=== PATIENT | female | born 1985 | race Hispanic/Latino ===

== ENCOUNTER 2018-07-25 08:32 | Day surgery (SDC) | payer OTHER ==
--- OUTSIDE RECORDS SUMMARY | 2018-07-25 08:34 | XMS REPORT ---
:1985 Author Organization e[employer]Works Care Team Providers Name Role Phone Zac Santacruz Provider Role Unavailable Allergies No Known Allergies Problems Problem Type Condition Code Onset Dates Condition Status Problem Fatigue R53.83 Active Problem Chronic sinusitis J32.9 Active Problem Nonscarring hair loss, unspecified L65.9 Active Problem Paronychia of finger of left hand L03.012 Active Problem Encounter for gynecological Z01.419 Active examination without abnormal finding Problem GERD without esophagitis K21.9 Active Problem Hypothyroidism E03.9 Active Problem Tobacco use disorder F17.200 Active Problem Screening examination for sexually Z11.3 Active transmitted disease Problem Allergic rhinitis, unspecified J30.9 Active seasonality, unspecified trigger Assessment Paronychia of finger of left hand L03.012 Active Problem Vitamin B12 deficiency E53.8 Active Problem Depression with anxiety F41.8 Active Problem Constipation K59.00 Active Problem Vitamin D deficiency E55.9 Active Problem Prediabetes R73.09 Active Medications Medication Code System Code Instructions Start End Date Status Dosage Date Valentino [facility] 58468564171 500 MG Orally QID April 19, Active 1 capsule 2017 Results No Known Results Summary Purpose eClinicalWorks Submission
--- OUTSIDE RECORDS SUMMARY | 2018-07-25 08:35 | XMS REPORT ---
:1985 Author Organization [employer] Care Team Providers Name Role Phone Noam Zac Provider Role Unavailable Allergies No Known Allergies [...] unspecified J30.9 Active seasonality, unspecified trigger Assessment Fatigue R53.83 Active Assessment Hypothyroidism E03.9 Active Assessment Depression with anxiety F41.8 Active Problem Vitamin B12 deficiency E53.8 Active Problem Depression with anxiety F41.8 Active Problem Constipation K59.00 Active Problem Vitamin D deficiency E55.9 Active Problem Prediabetes R73.09 Active Medications No Known Medications Results No Known Results Summary Purpose eClinicalWorks Submission
--- OUTSIDE RECORDS SUMMARY | 2018-07-25 08:35 | XMS REPORT ---
:1985 Author Organization e[employer]Works Care Team Providers Name Role Phone Noam Zac Provider Role Unavailable Allergies, Adverse Reactions, Alerts Substance Reaction Event Type N.K.D.A. Info Not Available Non Drug Allergy Problems Problem Type Condition Code Onset Dates Condition Status Assessment Vitamin B12 deficiency E53.8 Active Assessment Allergic rhinitis, unspecified J30.9 Active seasonality, unspecified trigger Problem Constipation K59.00 Active Assessment Vitamin D deficiency E55.9 Active Problem Prediabetes R73.09 Active Assessment Prediabetes R73.09 Active Problem Fatigue R53.83 Active Problem Chronic sinusitis J32.9 Active Problem Nonscarring hair loss, unspecified L65.9 Active Problem Paronychia of finger of left hand L03.012 Active Problem Encounter for gynecological Z01.419 Active examination without abnormal finding Assessment Tobacco use disorder F17.200 Active Assessment Constipation K59.00 Active Problem GERD without esophagitis K21.9 Active Assessment Fatigue R53.83 Active Problem Hypothyroidism E03.9 Active Problem Tobacco use disorder F17.200 Active Problem Screening examination for sexually Z11.3 Active transmitted disease Problem Allergic rhinitis, unspecified J30.9 Active seasonality, unspecified trigger Assessment Depression with anxiety F41.8 Active Assessment Hypothyroidism E03.9 Active Assessment GERD without esophagitis K21.9 Active Assessment Abdominal bloating R14.0 Active Problem Vitamin B12 deficiency E53.8 Active Problem Depression with anxiety F41.8 Active Problem Vitamin D deficiency E55.9 Active Medications Medication Code Code Instructions Start End Status Dosage System Date Date Iron [facility] [address]-63 Active not defined Zinc [facility] 90763-22637 Active not defined Vitamin D3 [facility] 86471345628 2000 UNIT Active 1 capsule Orally Once a day Omeprazole ND 04582394052 40 MG Orally Jul 11, Active 1 capsule Once a day 2017 Women[facility] NDC 0 Active not Essentials 1 a defined day Multivitamins Hair Skin Nails [facility] 57487-10041 Active not defined Diflucan [facility] 86654784685 150 MG Orally Active 1 tablet Once a day (as needed for yeast infection ) Biotin [facility] 17454990255 1 MG Orally Active not defined Synthroid [facility] 27607248509 50 MCG Orally Active 1 tablet Once a day on an empty stomach in the morning Nicotine Step 1 [facility] 14323345611 21 MG/24HR Active 1 patch Transdermal to skin Once a day Brain [facility] [address]-43 Active not defined Results No Known Results Summary Purpose eClinicalWorks Submission
[2018-07-25 08:56] LABS: Specific Gravity 1.025 (1.005-1.030)
[2018-07-25] MEDS ORDERED: Ringers Lactate 1,000 ML IV ONE (09:05)
[2018-07-25] MEDS ORDERED: LIDOCAINE 1% MPF 5 ML VIAL ONE (09:57)
[2018-07-25] MEDS ORDERED: PROPOFOL 200 MG/20 ML VIAL IV ONE (10:04)
[2018-07-25] MEDS ORDERED: MIDAZOLAM HCL 2 MG/2 ML INJ ONE (10:11)
--- NOTE | 2018-07-25 10:23 | ENDO RPT ---
[address], [address] EGD PROCEDURE REPORT EXAM DATE: 07/25/2018 PATIENT NAME: Sandi Hobson MR#: [id number] BIRTHDATE: 1985 ATTENDING: Ignacio Patel DR STATUS: outpatient [employer] SUPERVISOR: Freda Chance RN, Dex Ortega [facility], and Gavi Boucher RN INDICATIONS: The patient is a 32 yr old Female here for an EGD due to abdominal pain, mid epigastric abdominal pain, belching, dysphagia, dyspepsia, and GERD PROCEDURE PERFORMED: EGD with biopsy for H. pylori MEDICATIONS: Per Anesthesia. TOPICAL ANESTHETIC: none CONSENT: The patient understands the risks and benefits of the procedure and understands that these risks include, but are not limited to: sedation, allergic reaction, infection, perforation and/or bleeding. Alternative means of evaluation and treatment include, among others: physical exam, x-rays, and/or surgical intervention. The patient elects to proceed with this endoscopic procedure. DESCRIPTION OF PROCEDURE: During intra-op preparation period all mechanical medical equipment was checked for proper function. Hand hygiene and appropriate measures for infection prevention was taken. Procedure, possible complications, and alternatives including but not limited to the possibility of bleeding, perforation, tear, infection, sepsis, need for surgery, need for blood transfusion, and anesthesia related complications were explained to the patient. After the risks, benefits and alternatives of the procedure were thoroughly explained, Informed consent was verified, confirmed and timeout was successfully executed by the treatment team. The patient was placed in the left lateral position. The patient was anesthetized with topical anesthesia. Through the anesthetized oropharyngeal area, the scope was passed without any difficulty. The [id number] ([id number]) endoscope was introduced through the mouth and advanced to the second portion of the duodenum. Retroflexed views revealed no abnormalities. The gastroscope was then slowly withdrawn and removed. Multiple erosions were found in the body and the antrum of the stomach. A biopsy for H. pylori was taken. Duodenitis was found in the bulb and descending duodenum. A biopsy for H. pylori was taken. With standard forceps, a biopsy was obtained and sent to pathology. ADVERSE EVENTS: There were no complications. IMPRESSIONS: 1. Multiple erosions were found in the body and the antrum of the stomach 2. Duodenitis was found in the bulb and descending duodenum RECOMMENDATIONS: 1. acid suppression therapy 2. anti-reflux regimen 3. await biopsy results 4. follow-up: office 2 week(s) 5. avoid NSAIDS 6. follow-up of helicobacter pylori status, treat if indicated REPEAT EXAM: Ignacio Patel DR eSigned: Ignacio Patel DR 07/25/2018 10:23 AM cc: CPT CODES: ICD9 CODES: PATIENT NAME: Sandi Hobson MR#: [id number]
== END 2018-07-25 10:56 | disposition home health service (06) ==
LOC: OR 08:32
PROVIDERS: ATTEND Surgery
PROC: 0DB78ZX Excision of Stomach, Pylorus, Via Natural or Artificial Opening Endoscopic, Diagnostic (ICD-10-PCS; 2018-07-25)
PROC: 0DB98ZX Excision of Duodenum, Via Natural or Artificial Opening Endoscopic, Diagnostic (ICD-10-PCS; principal; 2018-07-25 10:11)
DX: K29.50 Unspecified chronic gastritis without bleeding (principal); K25.9 Gastric ulcer, unspecified as acute or chronic, without hemorrhage or perforation; K29.80 Duodenitis without bleeding; K21.9 Gastro-esophageal reflux disease without esophagitis; E03.9 Hypothyroidism, unspecified; F41.8 Other specified anxiety disorders; E53.8 Deficiency of other specified B group vitamins; E55.9 Vitamin D deficiency, unspecified; Z90.49 Acquired absence of other specified parts of digestive tract; Z82.49 Family history of ischemic heart disease and other diseases of the circulatory system; Z82.3 Family history of stroke; Z83.3 Family history of diabetes mellitus
CPT/HCPCS: 81025; 88305; 88312; J2250

== ENCOUNTER 2022-08-18 00:56 | Emergency (ER) | payer OTHER ==
--- OUTSIDE RECORDS SUMMARY | 2022-08-18 01:00 | XMS REPORT | Continuity of Care Document ---
:1985 Author Organization [facility] t Address [facility]3 Aime Carrillo [address] [place] [address] Care Team Providers Name Role Phone PCP, PATIENT DOES NOT HAVE A Primary Care Physician Unavaila CHARO Carroll Attending Clinician Unavailable Charo Jerez MD Attending Clinician Doctor Unassigned, Impact Attending Clinician Unavailable Pob, Adc Lab Main Attending Clinician Unavailable Payers Payer Name Policy Type Policy Number Effective Date Expiration Date Merle CHISHOLM [id number] 2021 00:00:00 Problems Condition Condition Condition Status Onset Resolution Last Treating Co mments Source Name Details Category Date Date Treatment Clinician Date Obesity Obesity Disease Active Univers (BMI (BMI 6-29 ity of 30-39.9) 30-39.9) 00:00: [place] [address] Medical Branch No known No known Disease Unive rs active active ity of problems problems [facility] Thyroid Thyroid Disease Active Univers disease disease ity of [facility] Fatigue Fatigue Problem Active [facility] - [facility] Chronic Chronic Problem Active Common sinusitis sinusitis Spir it - [facility] Nonscarrin Nonscarrin Problem Active C ommon g hair g hair Spirit loss, loss, - CHI unspecifie unspecifie d [facility] Paronychia Paronychia Problem Active C ommon of finger of finger Spir it of left of left - CHI hand hand [facility] Encounter Encounter Problem Active Com mon for for Spirit gynecologi gynecologi - CHI denise denise St examinatio examinatio Nimisha kes n without n without Medi denise abnormal abnormal Center finding finding GERD GERD Problem Active Common without without Spirit esophagiti esophagiti - CHI s s [facility] Hypothyroi Hypothyroi Problem Active C ommon dism dism [facility] 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 [facility] Screening Screening Problem Active Com mon examinatio examinatio Sp bernie n for n for - CHI sexually sexually St transmitte transmitte Nimisha kes d disease d disease [facility] Allergic Allergic Problem Active Commo n rhinitis, rhinitis, Spir it unspecifie unspecifie - CHI d d St seasonalit seasonalit Nimisha kes y, y, Medical unspecifie unspecifie Ce nter d trigger d trigger Vitamin Vitamin Problem Active Common B12 B12 Spirit deficiency deficiency [facility] Depression Depression Problem Active Og guadalupe with with Spirit anxiety anxiety [facility] Constipati Constipati Problem Active Og guadalupe on on [facility] Vitamin D Vitamin D Problem Active Com mon deficiency deficiency Sp bernie - [facility] Prediabete Prediabete Problem Active Og guadalupe s s [facility] Gastritis Gastritis Problem Active Com mon and and Spirit duodenitis duodenitis [facility] Adult BMI Adult BMI Problem Active Com mon 30.0-30.9 30.0-30.9 Spir it kg/sq m kg/sq m [facility] Panic Panic Problem Active Common attacks attacks [facility] Upper Upper Diagnosis Active Common respirator respirator Sp bernie y tract y tract - CHI infection, infection, St unspecifie unspecifie Nimisha kes d type d type [facility] Center Non-season Non-season Diagnosis Active Common al al Spirit allergic allergic - CHI rhinitis, rhinitis, St unspecifie unspecifie Nimisha kes d trigger d trigger [facility] Acute Acute Diagnosis Active Common non-recurr non-recurr Sp bernie ent ent - CH[facility] maxillary maxillary St sinusitis sinusitis [facility] Allergies, Adverse Reactions, Alerts Allergy Allergy Status Severity Reaction(s) Onset Inactive Treating Comm ents Source Name Type Date Date Clinician NUTRITIO DRUG Active Unknown-Cmnt 2018-11 Un beck NAL 12-25 ity of SUPPLEME 00:00: [place] NT-FIBER [address] [place] [address] FISH DRUG Active Unknown-nt 2018-11 Univ ers DERIVED INGREDI 12-25 ity of 00:00: [address] NO KNOWN Drug Active Univers ALLERGIE Class ity of S [facility] Eggs/Paul Adverse Active Info Not Commo n les/Oats Reaction Available Spi rit - [facility] Fish Adverse Active Info Not Common Flavor Reaction Available Spiri t - [facility] Social History Social Habit Start Date Stop Date Quantity Comments Source Exposure to Not sure [facility] SARS-CoV-2 [facility] (event) [place] Tobacco use and 2021-05-27 2021-05-27 Never used Universit y of exposure 00:00:00 00:00:00 [facility] Alcohol intake 2021-05-27 2021-05-27 [facility] 00:[facility]:00 00:00:00 (finding) [facility] Sex [birth year] Universit y of 00:00:00 00:00:00 [facility] Smoking Status Start Date Stop Date Source Former smoker 2021-05-27 00:00:00 2021-05-27 00:00:00 Universi ty [facility] Medications Ordered Filled Start Stop Current Ordering Indication Dosage Frequency Signature Comments Components Source Medication Medication Date Date Medication? Clinician (SIG) Name Name metroNIDAZO 2020- No [id number] 1{appli Insert 1 Univers LE 0.75 % 7-15 06-18 cator} Applicator i ty of vaginal gel 00:00: 04:59 into [place] 00 :00 vagina at [facility] bedtime [place] for 5 days. Insert for 5 days every month for 6 months Lactobacill Yes Take by Uni vers us 6-29 mouth. ity of acidophilus 16:38: [place] (PROBIOTIC) [address] cell capsule multivitami Yes Take by Uni vers n with 6-29 mouth. ity of minerals 16:38: [place] (HAIR,SKIN 05 Medical AND NAILS Branch ORAL) Lactobacill Yes Take by Uni vers us 6-29 mouth. ity of acidophilus 16:38: [place] (PROBIOTIC) 05 [place] [address] billion [place] cell capsule multivitami Yes Take by Uni vers n with 6-29 mouth. ity of minerals 16:38: [place] (HAIR,SKIN 05 Medical AND NAILS Branch ORAL) Lactobacill Yes Take by Uni vers us 6-29 mouth. ity of acidophilus 16:38: [place] (PROBIOTIC) [address] cell capsule multivitami Yes Take by Uni vers n with 6-29 mouth. ity of minerals 16:38: [place] (HAIR,SKIN 05 Medical AND NAILS Branch ORAL) Lactobacill Yes Take by Uni vers us 6-29 mouth. ity of acidophilus 16:38: [place] (PROBIOTIC) 05 Medical 10 billion Branch cell capsule multivitami Yes Take by Uni vers n with 6-29 mouth. ity of minerals 16:38: [place] (HAIR,SKIN 05 Medical AND NAILS Branch ORAL) Lactobacill 0 Yes Take by Uni vers us 6-29 mouth. ity of acidophilus 16:38: [place] (PROBIOTIC) 05 Medical 10 billion Branch cell capsule multivitami Yes Take by Uni vers n with 6-29 mouth. ity of minerals 16:38: [place] (HAIR,SKIN 05 Medical AND NAILS Branch ORAL) Lactobacill Yes Take by Uni vers us 6-29 mouth. ity of acidophilus 16:38: [place] (PROBIOTIC) 05 Medical 10 billion Branch cell capsule multivitami Yes Take by Uni vers n with 6-29 mouth. ity of minerals 16:38: [place] (HAIR,SKIN 05 Medical AND NAILS Branch ORAL) Lactobacill 0 Yes Take by Uni vers us 6-29 mouth. ity of acidophilus 16:38: [place] (PROBIOTIC) 05 Medical 10 billion Branch cell capsule multivitami Yes Take by Uni vers n with 6-29 mouth. ity of minerals 16:38: [place] (HAIR,SKIN 05 Medical AND NAILS Branch ORAL) metroNIDAZO 0 Yes [id number] 500mg Take 1 Univers LE 500 mg 5-16 tablet by ity o f tablet 00:00: mouth [place] 00 every 12 Medical (twelve) Branch hours. metroNIDAZO 2020-2020- No [id number] 500mg Take 1 Univers LE 500 mg 5-16 -29 tablet by ity of tablet 00:00: 00:00 mouth [place] 00 :00 every 12 Medical (twelve) Branch hours. metroNIDAZO 2020- 202- No [id number] 500mg Take 1 Univers LE 500 mg 5-16 -29 tablet by ity of tablet 00:00: 00:00 mouth [place] 00 :00 every 12 Medical (twelve) Branch hours. fluconazole 2020-2020- No [id number] 150mg Take 1 Univers 150 mg 5-16 05-17 tablet by ity of tablet 00:00: 04:59 [place] 00 :[place] now for 1 Medical dose. Branch metroNIDAZO 0 Yes [id number] 500mg Take 1 Univers LE 500 mg 4-16 tablet by ity o f tablet 00:00: mouth [place] 00 every 12 Medical (twelve) Branch hours. Nitrofurant Yes [id number] 100mg Take 1 Univers oin&Nit. 4-16 capsule by ity o f Mac[place] 00:00: [place] 2 [place] (MACROBID) 00 (two) Medical 100 mg times Branch capsule daily. metroNIDAZO Yes [id number] 500mg Take 1 Univers LE 500 mg 4-16 tablet by ity o f tablet 00:00: mouth [place] 00 every 12 Medical (twelve) Branch hours. Nitrofurant Yes [id number] 100mg Take 1 Univers oin&Nit. 4-16 capsule by ity o f Mac[place] 00:00: mouth 2 [place] (MACROBID[place] 00 (two) Medical 100 mg times Branch capsule daily. metroNIDAZO Yes [id number] 500mg Take 1 Univers LE 500 mg 4-16 tablet by ity o f tablet 00:00: mouth [place] 00 every 12 Medical (twelve) Branch hours. Nitrofurant 2020- Yes [id number] 100mg Take 1 Univers oin&Nit. 4-16 capsule by ity o f [place] 00:00: mouth 2 [place] (MACROBID) 00 (two) Medical 100 mg times Branch capsule daily. metroNIDAZO 2020- Yes [id number] 500mg Take 1 Univers LE 500 mg 4-16 tablet by ity o f tablet 00:00: mouth [place] 00 every 12 Medical (twelve) Branch hours. Nitrofurant 2020-0 Yes [id number] 100mg Take 1 Univers oin&Nit. 4-16 capsule by ity o f Mac[place] 00:00: mouth 2 [place] (MACROBID[place] 00 (two) Medical 100 mg times Branch capsule daily. metroNIDAZO 2020-0 Yes [id number] 500mg Take 1 Univers LE 500 mg 4-16 tablet by ity o f tablet 00:00: mouth [place] 00 every 12 Medical (twelve) Branch hours. Nitrofurant 2020-0 Yes [id number] 100mg Take 1 Univers oin&Nit. 4-16 capsule by ity o f Mac[place]ryst 00:00: mouth 2 [place] (MACROBID) 00 (two) Medical 100 mg times Branch capsule daily. metroNIDAZO 2020-0 Yes [id number] 500mg Take 1 Univers LE 500 mg 4-16 tablet by ity o f tablet 00:00: mouth [place] 00 every 12 Medical (twelve) Branch hours. Nitrofurant 2020-0 Yes [id number] 100mg Take 1 Univers oin&Nit. 4-16 capsule by ity o f Mac[place]ryst 00:00: mouth 2 [place] (MACROBID) 00 (two) Medical 100 mg times Branch capsule daily. metroNIDAZO 2020-0 2020- No [id number] 500mg Take 1 Univers LE 500 mg 4-16 05-13 tablet by ity of tablet 00:00: 00:00 mouth [place] 00 :00 every 12 Medical (twelve) Branch hours. Nitrofurant 2020-0 2020- No [id number] 100mg Take 1 Univers oin&Nit. 4-16 05-13 capsule by ity of Macrocryst 00:00: 00:00 mouth 2 [place] (MACROBID) 00 :00 (two) Medical 100 mg times Branch capsule daily. metroNIDAZO 2020-0 1- No [id number] 500mg Take 1 Univers LE 500 mg 4-16 05-13 tablet by ity of tablet 00:00: 00:00 mouth [place] 00 :00 every 12 Medical (twelve) Branch hours. Nitrofurant 2020-0 2020- No [id number] 100mg Take 1 Univers oin&Nit. 4-16 05-13 capsule by ity of Macrocryst 00:00: 00:00 mouth 2 [place] (MACROBID) 00 :00 (two) Medical 100 mg times Branch capsule daily. spironolact 2020-0 Yes Univer s one 100 mg 1-15 ity of tablet 00:00: [place] 00 Medical Branch spironolact 2020-0 Yes Univer s one 100 mg 1-15 ity of tablet 00:00: [place] 00 Medical Branch spironolact 2020-0 Yes Univer s one 100 mg 1-15 ity of tablet 00:00: [place] [facility] spironolact 2020-0 Yes Univer s one 100 mg 1-15 ity of tablet 00:00: [place] [facility] spironolact 2020-0 Yes Univer s one 100 mg 1-15 ity of tablet 00:00: [place] [facility] spironolact 2020-0 Yes Univer s one 100 mg 1-15 ity of tablet 00:00: [place] [facility] spironolact 2020-0 Yes Univer s one 100 mg 1-15 ity of tablet 00:00: [place] [facility] spironolact 2020-0 Yes Univer s one 100 mg 1-15 ity of tablet 00:00: [place] [facility] spironolact 2020-0 Yes Univer s one 100 mg 1-15 ity of tablet 00:00: [place] [facility] spironolact 2020-0 Yes Univer s one 100 mg 1-15 ity of tablet 00:00: [place] [facility] spironolact 2020-0 Yes Univer s one 100 mg 1-15 ity of tablet 00:00: [place] [facility] spironolact 2020-0 Yes Univer s one 100 mg 1-15 ity of tablet 00:00: [place] [facility] spironolact 2020-0 Yes Univer s one 100 mg 1-15 ity of tablet 00:00: [place] [facility] spironolact 2020-0 Yes Univer s one 100 mg 1-15 ity of tablet 00:00: [place] [facility] spironolact 2020-0 Yes Univer s one 100 mg 1-15 ity of tablet 00:00: [place] [facility] liothyronin 2019- Yes Univer s e 5 mcg 1-24 ity of tablet 00:00: [place] [facility] Thyroid, 2019- Yes Univers [place], (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) 90 00:00: [place] mg tablet 00 Medical Branch liothyronin 2019- Yes Univer s e 5 mcg 1-24 ity of tablet 00:00: [place] [facility] Thyroid, 2019- Yes Univers [place], (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) 90 00:00: [place] mg tablet Medical Branch liothyronin 2019-11 Yes Univer s e 5 mcg 1-24 ity of tablet 00:00: [place] [facility] Thyroid, 2019-11 Yes Univers [place], (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) 90 00:00: [place] mg tablet Medical Branch liothyronin 2019-11 Yes Univer s e 5 mcg 1-24 ity of tablet 00:00: Medical Branch Thyroid, 2019-11 Yes Univers [place], (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) 90 00:00: [place] mg tablet Medical Branch liothyronin 2019-11 Yes Univer s e 5 mcg 1-24 ity of tablet 00:00: Medical Branch Thyroid, 2019-11 Yes Univers [place], (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) 90 00:00: [place] mg tablet Medical Branch liothyronin 2019-11 Yes Univer s e 5 mcg 1-24 ity of tablet 00:00: Medical Branch Thyroid, 2019-11 Yes Univers [place], (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) 90 00:00: [place] mg tablet Medical Branch liothyronin 2019-11 Yes Univer s e 5 mcg 1-24 ity of tablet 00:00: Medical Branch Thyroid, 2019-11 Yes Univers [place], (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) 90 00:00: [place] mg tablet Medical Branch liothyronin 2019-11 Yes Univer s e 5 mcg 1-24 ity of tablet 00:00: Medical Branch Thyroid, 2019-11 Yes Univers [place], (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) 90 00:00: [place] mg tablet Medical Branch liothyronin 2019-11 Yes Univer s e 5 mcg 1-24 ity of tablet 00:00: [place] [facility] Thyroid, 2019-11 Yes Univers [place], (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) 90 00:00: [place] mg tablet Medical Branch liothyronin 2019-11 Yes Univer s e 5 mcg 1-24 ity of tablet 00:00: Medical Branch Thyroid, 2019-11 Yes Univers [place], (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) 90 00:00: [place] mg tablet Medical Branch liothyronin 2019-11 Yes Univer s e 5 mcg 1-24 ity of tablet 00:00: [place] [facility] Thyroid, 2019-11 Yes Univers [place], (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) 90 00:00: [place] mg tablet [facility] liothyronin 2019-11 Yes Univer s e 5 mcg 1-24 ity of tablet 00:00: [place] [facility] Thyroid, 2019-11 Yes Univers [place], (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) 90 00:00: [place] mg tablet [facility] liothyronin 2019-11 Yes Univer s e 5 mcg 1-24 ity of tablet 00:00: [place] [facility] Thyroid, 2019-11 Yes Univers [place], (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) 90 00:00: [place] mg tablet [facility] liothyronin 2019-11 Yes Univer s e 5 mcg 1-24 ity of tablet 00:00: [place] [facility] Thyroid, 2019-11 Yes Univers [place], (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) 90 00:00: [place] mg tablet [facility] liothyronin 2019-11 Yes Univer s e 5 mcg 1-24 ity of tablet 00:00: [place] [facility] Thyroid, 2019-11 Yes Univers [place], (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) 90 00:00: [place] mg tablet [facility] Amoxicillin Amoxicillin 2018-11 2019- No Azc 1 tablet Common -Pot -Pot 1-27 12-07 [facility] Clavulanate Clavulanate 00:00: 00:00 - CHI 00 :00 [facility] Montelukast Montelukast 2019-0 Yes Zac 1 tablet Common Sodium Sodium 8-22 [facility] 00:00: - CHI 00 [facility] Omeprazole Omeprazole 2017-0 Yes Zac 1 capsule Common 8-13 [facility] 00:00: - CHI 00 [facility] No known No Univers medications ity of [facility] Biotin Biotin Yes Zac not Common Sant[facility] defined Spirit [facility] Iron Iron Yes Zac not Common [facility] defined [facility] Hair Skin Hair Skin Yes Zac not Com mon Nails Nails [facility] defined [facility] Synthroid Synthroid Yes Zac 1 tablet Common [facility] on an Spirit empty - CHI stomach in [facility] Vitamin D3 Vitamin D3 Yes Zac 1 capsule Common [facility] - [facility] Brain Brain Yes Zac not Common [facility] defined Spirit - [facility] Women's Women's Yes Zac not Common Essentials Essentials [facility] defined Spirit 1 a day 1 a day - CHI Multivitami Multivitami S t ns [facility] Nicotine Nicotine Yes Zac 1 patch to Common Step 1 Step 1 [facility] skin Spirit - [facility] Zinc Zinc Yes Zac not Common [facility] defined [facility] Immunizations Ordered Filled Immunization Date Status Comments Sour e Immunization Name Name SARS-COV-2 COVID-19 2021-02-15 Completed Unive rsity of PFIZER VACCINE 00:00:00 [facility] SARS-COV-2 COVID-19 2021-02-15 Completed Unive rsity of PFIZER VACCINE 00:00:00 [facility] SARS-COV-2 COVID-19 2021-02-15 Completed Unive rsity of PFIZER VACCINE 00:00:00 [facility] SARS-COV-2 COVID-19 2021-02-15 Completed Unive rsity of PFIZER VACCINE 00:00:00 [facility] SARS-COV-2 COVID-19 2021-02-15 Completed Unive rsity of PFIZER VACCINE 00:00:00 [facility] SARS-COV-2 COVID-19 2021-02-15 Completed Unive rsity of PFIZER VACCINE 00:00:00 [facility] SARS-COV-2 COVID-19 2021-02-15 Completed Unive rsity of PFIZER VACCINE 00:00:00 [facility] SARS-COV-2 COVID-19 2021-02-15 Completed Unive rsity of PFIZER VACCINE 00:00:00 [facility] SARS-COV-2 COVID-19 2021-02-15 Completed Unive rsity of PFIZER VACCINE 00:00:00 [facility] SARS-COV-2 COVID-19 2021-02-15 Completed Unive rsity of PFIZER VACCINE 00:00:00 [facility] SARS-COV-2 COVID-19 2021-02-15 Completed Unive rsity of PFIZER VACCINE 00:00:00 [place] [facility]i [facility]ise Branch SARS-COV-2 COVID-19 2021-02-15 Completed Unive rsity of PFIZER VACCINE 00:00:00 [facility] SARS-COV-2 COVID-19 2021-02-15 Completed Unive rsity of PFIZER VACCINE 00:00:00 [facility] SARS-COV-2 COVID-19 2021-02-15 Completed Unive rsity of PFIZER VACCINE 00:00:00 [facility] SARS-COV-2 COVID-19 2021-02-15 Completed Unive rsity of PFIZER VACCINE 00:00:00 [facility] SARS-COV-2 COVID-19 2021-02-15 Completed Unive rsity of PFIZER VACCINE 00:00:00 [facility] SARS-COV-2 COVID-19 2021-02-15 Completed Unive rsity of PFIZER VACCINE 00:00:00 [facility] SARS-COV-2 COVID-19 2021-01-25 Completed Unive rsity of PFIZER VACCINE 00:00:00 [facility] SARS-COV-2 COVID-19 2021-01-25 Completed Unive rsity of PFIZER VACCINE 00:00:00 [facility] SARS-COV-2 COVID-19 2021-01-25 Completed Unive rsity of PFIZER VACCINE 00:00:00 [facility] SARS-COV-2 COVID-19 2021-01-25 Completed Unive rsity of PFIZER VACCINE 00:00:00 [facility] SARS-COV-2 COVID-19 2021-01-25 Completed Unive rsity of PFIZER VACCINE 00:00:00 [facility] SARS-COV-2 COVID-19 2021-01-25 Completed Unive rsity of PFIZER VACCINE 00:00:00 [facility] SARS-COV-2 COVID-19 2021-01-25 Completed Unive rsity of PFIZER VACCINE 00:00:00 [facility] SARS-COV-2 COVID-19 2021-01-25 Completed Unive rsity of PFIZER VACCINE 00:00:00 [facility] SARS-COV-2 COVID-19 2021-01-25 Completed Unive rsity of PFIZER VACCINE 00:00:00 [facility] SARS-COV-2 COVID-19 2021-01-25 Completed Unive rsity of PFIZER VACCINE 00:00:00 [facility] SARS-COV-2 COVID-19 2021-01-25 Completed Unive rsity of PFIZER VACCINE 00:00:00 [facility] SARS-COV-2 COVID-19 2021-01-25 Completed Unive rsity of PFIZER VACCINE 00:00:00 [facility] SARS-COV-2 COVID-19 2021-01-25 Completed Unive rsity of PFIZER VACCINE 00:00:00 [facility] SARS-COV-2 COVID-19 2021-01-25 Completed Unive rsity of PFIZER VACCINE 00:00:00 [facility] SARS-COV-2 COVID-19 2021-01-25 Completed Unive rsity of PFIZER VACCINE 00:00:00 [facility] SARS-COV-2 COVID-19 2021-01-25 Completed Unive rsity of PFIZER VACCINE 00:00:00 [facility] SARS-COV-2 COVID-19 2021-01-25 Completed Unive rsity of PFIZER VACCINE 00:00:00 [facility] Afluria Afluria 2018-09-08 Completed [facility] - 00:00:00 [facility] Vital Signs Vital Name Observation Time Observation Value Comments Source Systolic blood 2021-05-27 16:36:00 118 mm[Hg] Univer sity of pressure [facility] Diastolic blood 2021-05-27 16:36:00 81 mm[Hg] Unive rsity of pressure [facility] Heart rate 2021-05-27 16:36:00 77 /min [facility] Body temperature 2021-05-27 16:36:00 36.44 Corinna Univ ersity of [facility] Respiratory rate 2021-05-27 16:36:00 18 /min Univ ersity of [facility] Body height 2021-05-27 16:36:00 157.5 cm [facility] Body weight 2021-05-27 16:36:00 76.658 kg [facility] BMI 2021-05-27 16:36:00 30.91 kg/m2 [facility] Systolic blood 2021-04-10 13:18:00 114 mm[Hg] Univer sity of pressure [facility] Diastolic blood 2021-04-10 13:18:00 79 mm[Hg] Unive rsity of pressure [place] [facility] Heart rate 2021-04-10 13:18:00 86 /min Universi ty of [place] [facility] Body temperature 2021-04-10 13:18:00 36.61 Corinna Univ ersity of [place] [facility] Respiratory rate 2021-04-10 13:18:00 16 /min Univ ersity of [facility] Body height 2021-04-10 13:18:00 157.5 cm Universi ty of [place] [facility] [place] Body weight 2021-04-10 13:18:00 73.483 kg Universi ty of [place] [facility] BMI 2021-04-10 13:18:00 29.63 kg/m2 [facility]i ty [facility] [place] [facility] Systolic blood 2021-03-18 13:33:00 118 mm[Hg] Univer sity of pressure [place] [facility] [place] Diastolic blood 2021-03-18 13:33:00 80 mm[Hg] Unive rsity of pressure [facility] Heart rate 2021-03-18 13:33:00 69 /min Universi ty of [place] [facility] [place] Body temperature 2021-03-18 13:33:00 36.67 Corinna Univ ersity of [place] [facility] Respiratory rate 2021-03-18 13:33:00 18 /min Univ ersity of [place] [facility] Body height 2021-03-18 13:33:00 157.5 cm Universi ty of [place] [facility] [place] Body weight 2021-03-18 13:33:00 73.029 kg Universi ty [facility] [place] [facility] [place] BMI 2021-03-18 13:33:00 29.45 kg/m2 Universi ty of [facility] Procedures Procedure Date / Time Performed Performing Clinician Sourc e SCANNED LAB RESULTS 2021-05-27 05:01:00 Doctor Unassigned, No Un iversity of [place] Name Medical Branch POCT URINALYSIS W/O 2021-05-27 00:00:00 Charo Jerez [facility] [place] SPECIFIC GRAVITY [facility] Branch Encounters Start End Encounter Admission Attending Care Care Encounter Source Date/Time Date/Time Type Type Clinicians Facility Department ID 2022-03-20 2022-03-20 Outpatient R KAT [facility] [id number] [facility] 09:00:00 09:00:00 CHARO [id number] ity [facility] 2022-03-20 2022-03-20 Outpatient R ADUM, [facility] [id number] Univers 09:00:00 09:00:00 CHARO ity [facility] 2021-06-11 2021-06-11 Telephone Adum, [facility] [id number] Univers 00:00:00 00:00:00 Charo [place] [id number] [id number] [phone] [place] [address] [place] [address] 2021-06-09 2021-06-09 Telephone Adum, [facility] [id number] Univers 00:00:00 00:00:00 Charo Flores [id number] [id number] [phone] [place] [address] [place] [address] 2021-05-27 2021-05-27 Office Adum, [facility] [id number] Univers 11:03:47 11:52:48 Visit Charo [place] [id number] [id number] [phone] [place] dic[address] 2021-05-27 2021-05-27 Outpatient R AD, [facility] [id number] Univers 11:00:00 11:00:00 CHARO [id number] ity of [facility] 2021-05-27 2021-05-27 Outpatient R ADUM, [facility] [id number] Univers 11:00:00 11:00:00 CHARO ity [facility] 2021-05-27 2021-05-27 Orders Doctor CHRISTOPHER [id number] Univers 00:00:00 00:00:00 Only Unassigned, JOSE [id number] ity of Impact [facility] [id number] Tim as [phone] [address] 2021-05-20 2021-05-20 Outpatient R ADUM, [facility] [id number] Univers 09:00:00 09:00:00 CHARO [id number] ity [facility] 2021-05-20 2021-05-20 Outpatient R ADUM, [facility] [id number] Univers 09:00:00 09:00:00 CHARO ity [facility] 2021-04-13 2021-04-13 Case Adum, [facility] [id number] Univers 00:00:00 00:00:00 Management Charo Magana [place] [id number] [id number] [phone] [address] 2021-04-10 2021-04-10 Office Adum, [facility] [id number] Univers 08:01:42 08:53:45 Visit Charo Magana [place] [id number] [id number] [phone] [address] 2021-04-10 2021-04-10 Outpatient R ADUM, [facility] [id number] Univers 08:00:00 08:00:00 CHARO [id number] ity [facility] 2021-04-10 2021-04-10 Outpatient R ADUM, [facility] [id number] Univers 08:00:00 08:00:00 CHARO ity [facility] 2021-04-07 2021-04-07 Refill Ad, [facility] [id number] Univers 00:00:00 00:00:00 Charo Magana [place] [id number] [id number] [phone] [place] dic[address] 2021-04-07 2021-04-07 Refill Adum, [facility] [id number] Univers 00:00:00 00:00:00 Charo Magana [place] [id number] [id number] [phone] [place] 134 [facility] 2021-03-18 2021-03-18 Wad Compressor Operator Adjuster Reggie, Adc Lab Main [facility] [id number] Univers 09:27:13 09:42:13 Visit Adkash, Charo [place] [id number] [id number] [phone] [facility] 353 [facility] 2021-03-18 2021-03-18 [facility] [id number] Univers 08:24:59 09:12:34 Visit Charo [place] [id number] [id number] [phone] [address] 2021-03-18 2021-03-18 [facility] [id number] Univers 08:30:00 08:30:00 CHARO [id number] ity [facility] 2021-03-18 2021-03-18 [facility] [id number] Univers 08:30:00 08:30:00 CHARO ity [facility] 2021-03-14 2021-03-14 [facility] [id number] Univers 00:00:00 00:00:00 Management Charo [place] [id number] [id number] [phone] [address] 2021-03-13 2021-03-13 [facility] [id number] Univers 00:00:00 00:00:00 Charo Magana [place] [id number] [id number] [phone] [place] dic[address] 2021-03-11 2021-03-11 [facility] [id number] Univers 10:00:00 10:00:00 CHARO [facility] 2019-10-25 2019-10-25 Out[facility] [id number] Common 13:45:00 13:45:[address] [facility] 2019-09-04 2019-09-04 Out[facility] [id number] Common 08:45:00 08:45:[address] [facility] 2019-07-20 2019-07-20 [facility] [id number] Common 08:30:00 08:30:[address] [facility] 2019-02-23 2019-02-23 Out[facility] [id number] Common 15:00:00 15:00:[address] [facility] 2019-01-10 2019-01-10 Out[facility] [id number] Common 15:15:00 15:15:[address] [facility] 2018-12-27 2018-12-27 Out[facility] [id number] Common 14:25:00 14:25:[address] [facility] 2018-12-13 2018-12-13 Out[facility] [id number] Common 09:23:00 09:23:[address] [facility] 2018-12-09 2018-12-09 Out[facility] [id number] Common 10:15:00 10:15:[address] [facility] 2018-09-08 2018-09-08 Out[facility] [id number] Common 09:30:00 09:30:[address] [facility] 2018-08-09 2018-08-09 [facility] [id number] Common 10:15:00 10:15:00 t Specialty/U Sp [facility]ie Specialty rology - [facility] 2018-08-02 2018-08-02 [facility] [id number] Common 14:01:00 14:01:00 t Specialty/U Sp bernie Specialty rology - [facility] 2018-07-29 2018-07-29 Out[facility] [id number] Common 08:45:00 08:45:[address] [facility] 2018-07-20 2018-07-20 Out[facility] [id number] Common 13:45:00 13:45:00 t Specialty/U Sp bernie Specialty rology - [facility] 2018-07-17 2018-07-17 Out[facility] [id number] Common 20:47:00 20:47:[address] [facility] 2018-07-11 2018-07-11 Outpatient [facility] [id number] Common 10:35:00 10:35:[address] [facility] 2018-07-11 2018-07-11 Out[facility] [id number] Common 10:00:00 10:00:[address] [facility] Results Test Description Test Time Test Comments Results Result Comments Source POCT URINALYSIS W/O SPECIFIC GRAVITY 2021-05-27 17:09:00 Test Item Value Reference Range Interpretation Comme nts POCT PH U (test code = 3254) 5 mg/dl 5-8 POCT U LEUK EST (test code = 3263) neg Negative - Negative POCT U NIT (test code = 3262) neg Negative - Negative POCT U PROT (test code = 3259) neg Negative - Negative POCT U GLU (test code = 3256) neg Negative - Negative POCT U KETONE (test code = 3258) neg Negative - Negative POCT U BLD (test code = 3257) neg Negative - Negative Lab Interpretation (test code = 01917-3) [facility] [id number] 17:09:00 Test Item Value Reference Range Interpretation Comments POCT PH U (test code = 3254) 5 mg/dl 5-8 POCT U LEUK EST (test code = neg Negative - Negative 3263) POCT U NIT (test code = 3262) neg Negative - Negative POCT U PROT (test code = 3259) neg Negative - Negative POCT U GLU (test code = 3256) neg Negative - Negative POCT U KETONE (test code = 3258) neg Negative - Negative POCT U BLD (test code = 3257) neg Negative - Negative Lab Interpretation (test code = Normal 37767-6) [facility]
--- NOTE | 2022-08-18 01:18 | EDPHYS ---
Physician Documentation [facility] Name: Sandi Montoya Age: 36 yrs Sex: Female : 1985 Arrival Date: 08/18/2022 Time: 01:00 Bed 10 Private MD: ED Physician Neto Carreon HPI: 08/18 01:18 This 36 yrs old Female presents to ER via Ambulatory with complaints of Hives. ms3 01:18 36-year-old female with past medical history of thyroid disorder presents for urticaria ms3 that has occurred for the last 5 nights. Patient states she feels a break and then hives pop up. Patient denies pain at this time. Patient denies any new lotions, soaps, laundry detergents. Patient denies nausea or vomiting. Patient denies alleviating or inciting factors.. Historical: - Allergies: 01:19 No Known Allergies; as6 - PMHx: 01:19 thyroid problem; as6 - Immunization history:: Client reports receiving the 2nd dose of the Covid vaccine, pfizer. - Social history:: Smoking status: Patient reports the use of cigarette tobacco products, smokes one-half pack cigarettes per day, Reported history of juuling and/or vaping. ROS: 01:18 Constitutional: Negative for fever, and chills. ENT: Negative for injury, pain, and ms3 discharge, Neck: Negative for injury, pain, and swelling, Cardiovascular: Negative for chest pain, and palpitations. Respiratory: Negative for shortness of breath, cough, wheezing, and pleuritic chest pain, Abdomen/GI: Negative for abdominal pain, nausea, vomiting, diarrhea, and constipation, MS/Extremity: Negative for injury and deformity. 01:18 Skin: Positive for rash. Exam: 01:18 Constitutional: This is a well developed, well nourished patient who is awake, alert, ms3 and in no acute distress. Head/Face: Normocephalic, atraumatic. Neck: Trachea midline, no cervical lymphadenopathy. Supple, full range of motion without nuchal rigidity, or vertebral point tenderness. No Meningismus. Chest/axilla: Normal chest wall appearance and motion. Nontender with no deformity. Cardiovascular: Regular rate and rhythm with a normal S1 and S2. No gallops, murmurs, or rubs. Normal PMI, no JVD. No pulse deficits. Respiratory: Lungs have equal breath sounds bilaterally, clear to auscultation and percussion. No rales, rhonchi or wheezes noted. No increased work of breathing, no retractions or nasal flaring. Abdomen/GI: Soft, non-tender, with normal bowel sounds. No distension or tympany. No guarding or rebound. No evidence of tenderness throughout. 01:18 Skin: rash a moderate rash is noted, urticaria. Vital Signs: 01:18 BP 151 / 103; Pulse 87; Resp 18 S; Temp 98.1(O); Pulse Ox 100% on R/A; Weight 70.31 kg as6 (R); Height 5 ft. 2 in. (157.48 cm) (R); Pain 0/10; 01:18 Body Mass Index 28.35 (70.31 kg, 157.48 cm) as6 MDM: 01:16 Patient medically screened. ms3 01:18 Data reviewed: vital signs, nurses notes, and as a result, I will. Counseling: I had a ms3 detailed discussion with the patient and/or guardian regarding: the historical points, exam findings, and any diagnostic results supporting the discharge/admit diagnosis, the need for outpatient follow up, to return to the emergency department if symptoms worsen or persist or if there are any questions or concerns that arise at home. Administered Medications: 01:26 Drug: predniSONE 60 mg Route: PO; as6 01:27 Follow up: Response: No adverse reaction as6 Disposition Summary: 08/18/22 01:18 Discharge Ordered Location: Home ms3 Condition: Stable ms3 Diagnosis - Urticaria, unspecified ms3 Followup: ms3 - With: Zac Santacruz DO - When: 2 - 3 days - Reason: Re-evaluation by your physician Discharge Instructions: - Discharge Summary Sheet ms3 - Hives, [id number] ms3 Forms: - Medication Reconciliation Form ms3 - Thank You Letter ms3 - Antibiotic Education ms3 - Prescription Opioid Use ms3 Prescriptions: - Prednisone 20 mg Oral Tablet - take 2 tablets by ORAL route once daily for 5 days; 10 tablet; Refills: 0, ms3 Product Selection Permitted Signatures: Neto Carreon DO DO ms3 Kal Cowan RN RN as6
--- NOTE | 2022-08-18 01:28 | ER ---
Nurse's Notes [facility] Name: Sandi Montoya Age: 36 yrs Sex: Female : 1985 Arrival Date: 08/18/2022 Time: 01:00 Bed 10 Private MD: Diagnosis: Urticaria, unspecified Presentation: 08/18 01:18 Chief complaint: Patient states: "I've been having hives and they come and go. Nothing as6 has changed so I don't know what's been causing them". Coronavirus screen: At this time, the client does not indicate any symptoms associated with coronavirus-19. Ebola Screen: No symptoms or risks identified at this time. Initial Sepsis Screen: Does the patient meet any 2 criteria? No. Patient's initial sepsis screen is negative. Does the patient have a suspected source of infection? No. Patient's initial sepsis screen is negative. Risk Assessment: Do you want to hurt yourself or someone else? Patient reports no desire to harm self or others. Onset of symptoms is unknown. 01:18 Method Of Arrival: Ambulatory as6 01:18 Acuity: SHAHAB 4 as6 Triage Assessment: 01:26 General: Appears in no apparent distress. Behavior is calm, cooperative. Pain: Denies as6 pain. Neuro: Level of Consciousness is awake, alert. Respiratory: Respiratory effort is even, unlabored. Derm: Rash noted that is itchy, raised, on abdomen. Historical: - Allergies: 01:19 No Known Allergies; as6 - PMHx: 01:19 thyroid problem; as6 - Immunization history:: Client reports receiving the 2nd dose of the Covid vaccine, pfizer. - Social history:: Smoking status: Patient reports the use of cigarette tobacco products, smokes one-half pack cigarettes per day, Reported history of juuling and/or vaping. Screenin:27 Abuse screen: Denies threats or abuse. Denies injuries from another. Nutritional as6 screening: No deficits noted. Tuberculosis screening: No symptoms or risk factors identified. Fall Risk None identified. Vital Signs: 01:18 BP 151 / 103; Pulse 87; Resp 18 S; Temp 98.1(O); Pulse Ox 100% on R/A; Weight 70.31 kg as6 (R); Height 5 ft. 2 in. (157.48 cm) (R); Pain 0/10; 01:18 Body Mass Index 28.35 (70.31 kg, 157.48 cm) as6 ED Course: 01:00 Patient arrived in ED. ja2 01:04 Neto Carreon DO is Attending Physician. ms3 01:16 Zac Santacruz DO is Referral Physician. ms3 01:18 Kal Cowan, RN is Primary Nurse. as6 01:19 Triage completed. as6 01:20 Arm band placed on. as6 01:27 Bed in low position. Call light in reach. as6 01:27 No provider procedures requiring assistance completed. Patient did not have IV access as6 during this emergency room visit. Administered Medications: :26 Drug: predniSONE 60 mg Route: PO; as6 01:27 Follow up: Response: No adverse reaction as6 Medication: :27 VIS not applicable for this client. as6 Outcome: 01:18 Discharge ordered by MD. ms3 01:27 Discharged to home ambulatory. as6 01:27 Condition: stable 01:27 Discharge instructions given to patient, Instructed on discharge instructions, follow up and referral plans. medication usage, Demonstrated understanding of instructions, follow-up care, medications, Prescriptions given X 1. 01:27 Patient left the ED. as6 Signatures: Neto Carreon DO DO ms3 Meagan Becerril ja2 Kal Cowan, KAREN RN as6
[2022-08-18] MEDS ORDERED: predniSONE 20 MG TAB ONE (01:30)
[2022-08-19 09:33] VITALS: BP 151/103; TEMP 98.1; O2SAT 100
== END 2022-08-18 01:27 | disposition home or self-care (01) ==
LOC: ER 00:56
DX: L50.9 Urticaria, unspecified (principal)
CPT/HCPCS: 99283; J7512